=== PATIENT | female | born 1990 | race Caucasian/White ===

== ENCOUNTER 2020-04-04 10:40 | Emergency (ER) | payer BC ==
--- NOTE | 2020-04-04 11:02 | EDM.PDOC ---
ED HPI GENERAL MEDICAL PROBLEM - General Chief Complaint: General Stated Complaint: MASTITIS Time Seen by Provider: 04/04/20 10:43 Source of Information: Reports: Patient History Limitations: Reports: No Limitations - History of Present Illness INITIAL COMMENTS - FREE TEXT/NARRATIVE: 30-year-old female presents for pain, redness, swelling of right breast. Patient first noted breast pain 3 days ago and last night developed subjective fever and redness. She has not noted any discharge from the nipple. Patient is breast-feeding. No medication allergies - Related Data Home Meds: Home Meds Dicloxacillin 500 mg PO Q6H 7 Days #28 cap 04/04/20 [Rx] ED ROS GENERAL - Review of Systems Review Of Systems: Comprehensive ROS is negative, except as noted in HPI. ED EXAM, GENERAL - Physical Exam Exam: See Below Exam Limited By: No Limitations General Appearance: Alert, WD/WN, No Apparent Distress Throat/Mouth: Normal Voice, No Airway Compromise Head: Atraumatic, Normocephalic Neck: Normal Inspection Respiratory/Chest: No Respiratory Distress, No Accessory Muscle Use Cardiovascular: Normal Peripheral Pulses Extremities: Normal Inspection Neurological: Alert, Normal Gait Psychiatric: Normal Affect, Normal Mood Skin Exam: Warm, Dry, Intact, Normal Color, Other (Erythema, warmth, tenderness to palpation of right superolateral breast not involving the nipple, milky discharge from nipple but no purulent discharge, mildly indurated skin but no palpable fluctuance or abscess) Course - Re-Assessments/Exams Free Text/Narrative Re-Assessment/Exam: 04/04/20 10:59 Patient is with normal vital signs and clinical evidence of mastitis without physical exam evidence of abscess formation. Will discharge with dicloxacillin and [employer] follow-up. Patient instructed about possibility of abscess formation and necessity for follow-up if she develops palpable abscess or symptoms do not improve with antibiotics. Departure - Departure Time of Disposition: 10:59 Disposition: Home, Self-Care 01 Condition: Good Clinical Impression: Mastitis - Discharge Information Prescriptions: Dicloxacillin 500 mg PO Q6H 7 Days #28 cap Instructions: Mastitis, and Mastitis Referrals: PCP,Not In Area [Primary Care Provider] - Additional Instructions: The following information is given to patients seen in the emergency department who are being discharged to home. This information is to outline your options for follow-up care. We provide all patients seen in our emergency department with a follow-up referral. The need for follow-up, as well as the timing and circumstances, are variable depending upon the specifics of your emergency department visit. If you don't have a primary care physician on staff, we will provide you with a referral. We always advise you to contact your personal physician following an emergency department visit to inform them of the circumstance of the visit and for follow-up with them and/or the need for any referrals to a consulting specialist. The emergency department will also refer you to a specialist when appropriate. This referral assures that you have the opportunity for follow-up care with a specialist. All of these measure are taken in an effort to provide you with optimal care, which includes your follow-up. Under all circumstances we always encourage you to contact your private physician who remains a resource for coordinating your care. When calling for follow-up care, please make the office aware that this follow-up is from your recent emergency room visit. If for any reason you are refused follow-up, please contact the [facility] Emergency Department at and asked to speak to the emergency department charge nurse. Please follow up with your primary care physician. If you do not have a primary care physician, see below: [facility] [address] [place] [id number] [facility] [address] [place], [place] [id number] [facility] [address] [place] [id number]
== END 2020-04-04 11:09 | disposition home or self-care (01) ==
LOC: MW.ED 10:40
DX: N61.0 Mastitis without abscess (principal)
CPT/HCPCS: 99283